=== PATIENT | female | born 2000 | race Caucasian/White ===

== ENCOUNTER 2022-10-13 17:05 | Emergency (ER) | payer OTHER, SELFPAY ==
--- NOTE | ~2022-10-13 | XR_ITS ---
EXAMINATION: XR CHEST CLINICAL INFORMATION: Chest pain COMPARISON: None TECHNIQUE: 2 views of the chest were obtained. 1740 hours FINDINGS: No significant abnormality is noted involving the heart, lungs, mediastinum, bony thorax or soft tissues. XR/XR chest 2V IMPRESSION: Unremarkable examination.
[2022-10-13 17:17] VITALS: BP 158/95; PULSE 97; RESP 18; TEMP 36.8; O2SAT 99; BMI 60.5
--- NOTE | 2022-10-13 17:18 | ECG_ITS ---
Test Reason : CHEST PAIN Blood Pressure : / mmHG Vent. Rate : 090 BPM Atrial Rate : 090 BPM P-R Int : 148 ms QRS Dur : 092 ms QT Int : 356 ms P-R-T Axes : 044 004 021 degrees QTc Int : 435 ms Normal sinus rhythm Minimal voltage criteria for LVH, may be normal variant ( R in aVL ) Borderline ECG No previous ECGs available Referred By: Melinda Louis Electronically Signed By:SREEKANTH BANKS
--- NOTE | 2022-10-13 17:19 | ED_ITS ---
HPI - Chest Pain General Chief Complaint: General Medical <PRACHI Bañuelos - Last Filed: 10/13/22 17:21> Stated Complaint: chest pain,high bp,headache <PRACHI Bañuelos - Last Filed: 10/13/22 17:21> Time Seen by Provider: 10/13/22 21:07 <PRACHI Bañuelos - Last Filed: 10/13/22 17:21> Source: patient <Jasmin Pearl MD - Last Filed: 10/13/22 21:31> Mode of arrival: ambulatory <Jasmin Pearl MD - Last Filed: 10/13/22 21:31> Limitations: no limitations <Jasmin Pearl MD - Last Filed: 10/13/22 21:31> History of Present Illness HPI narrative: Patient comes to the emergency room complaining of chest pain due to coughing and high blood pressure. Patient states that for about a month, she has been struggling with a combination of influenza/COVID. Patient states that she does not have chest pain on that she coughs, it is mostly musculoskeletal. Patient denies lightheadedness, dizziness or shortness of breath. Also, patient complaining of a migraine headache that started approximately 1 month ago. Patient takes Excedrin which usually helps, but lately it has been constant. Patient denies any visual changes, no neck pain or rigidity. Patient was diagnosed with preeclampsia in February 2022 when she delivered her baby, recently taken off nifedipine, since then, patient's blood pressure has been elevated between 140 and 160. <Jasmin Pealr MD - Last Filed: 10/13/22 21:31> Related Data Home Medications: Previous Rx's Medication Instructions Recorded nifedipine 30 mg tablet,extended 30 mg PO DAILY #30 tabs 10/13/22 release 24 hr sumatriptan succinate 50 mg tablet 50 mg PO Q2-4H PRN migraine 10/13/22 headache #10 tabs <PRACHI Bañuelos - Last Filed: 10/13/22 17:21> Allergies/Adverse Reactions: Allergies Allergy/AdvReac Type Severity Reaction Status Date / Time No Known Allergies Allergy Verified 10/13/22 17:16 <PRACHI Bañuelos - Last Filed: 10/13/22 17:21> Review of Systems Review of Systems: Constitutional : No Weight loss, No Fever, No Chills, No Night Sweats, No Fatigue, No Malaise ENT/Mouth : No Hearing loss, No Ear Pain, No Nasal Congestion, No Sinus Pain, No Hoarseness, No sore throat, No Rhinorrhea, No Swallowing Difficulty Eyes: No Eye Pain, No Swelling, No Redness, No Foreign Body, No Discharge, No Vision Changes Cardiovascular : Complaining of musculoskeletal chest pain bilaterally and in the back with coughing, No Chest Pain, No SOB, No Dyspnea on Exertion, No Orthopnea, No Edema, No Palpitations Respiratory : Complaining of chronic coughing for approximately 1 month, no wheezing, no shortness of breath Gastrointestinal : No Nausea, No Vomiting, No Diarrhea, No Constipation, No abdominal Pain, No Hematochezia, No Melena Genitourinary : no irregular bleeding, No Dysuria, No Urinary Frequency, No Hematuria, No Urinary Incontinence, No Urgency, No Flank Pain, No Urinary Flow Changes, No Hesitancy Musculoskeletal : No joint pain, No Myalgias, No Joint Swelling Skin : No Skin Lesions, No rash Neuro : No Weakness, No Numbness, No Paresthesias, No Loss of Consciousness, No Dizziness, complaining of intermittent migraines for 1 month Psych : No Anxiety/Panic, No Depression, No SI/HI/AH/VH, No Social Issues, Heme/Lymph: No Bruising, No Bleeding,No Lymphadenopathy Endocrine : No Polyuria, No Polydipsia, No Temperature Intolerance <Jasmin Pearl MD - Last Filed: 10/13/22 21:31> [facility] Past Medical History Medical History: Medical History (Updated 10/13/22 @ 21:29 by Jasmin Pearl MD) Migraines Preeclampsia <PRACHI Bañuelos - Last Filed: 10/13/22 17:21> Social History Social History: Social History Alcohol intake: current Alcohol intake frequency: a few times a month Smoked in Last 30 Days: No Use of substances other than those prescribed or required for medical reasons: No Advance Directives: No Advance Directives Information Provided: No Patient : No <PRACHI Bañuelos - Last Filed: 10/13/22 17:21> Physical Exam Vital Signs: Vital Signs: Last Vital Signs Temp 98.6 F 10/13/22 20:11 Pulse 90 10/13/22 20:11 Resp 16 10/13/22 20:11 BP 143/90 H 10/13/22 20:11 Pulse Ox 97 10/13/22 20:11 O2 Del Method 10/13/22 20:11 BMI result Body Mass Index 60.5 <PRACHI Bañuelos - Last Filed: 10/13/22 17:21> Vital Signs: Last Vital Signs Temp 98.6 F 10/13/22 20:11 Pulse 90 10/13/22 20:11 Resp 16 10/13/22 20:11 BP 143/90 H 10/13/22 20:11 Pulse Ox 97 10/13/22 20:11 O2 Del Method 10/13/22 20:11 BMI result Body Mass Index 60.5 <Jasmin Pearl MD - Last Filed: 10/13/22 21:31> Const: Other: Appearance: Alert. Oriented X3. No acute distress. Eyes: Pupils equal, round and reactive to light. ENT: Pharynx normal. Neck: Normal inspection. Neck supple. No lymph nodes noted. No crepitus CVS: Normal heart rate and rhythm. Pulses normal. Normal S1 and S2 Respiratory: No respiratory distress. Breath sounds normal. No Wheezing. No rales Abdomen: Soft and nontender. No rigidity. No distention. Skin: Skin warm and dry. Normal skin color. Normal skin turgor. Extremities: No lower extremity edema. No Lacerations. No Rash Neuro: Oriented X 3. No motor deficit. No sensory deficit. Moving all extremities. No slurred speech. CN 2 through 12 grossly intact Psych: calm, cooperative, normal affect <Jasmin Pearl MD - Last Filed: 10/13/22 21:31> Course Course Course Narrative: RME-17:16PM 22yoF with a past medical history of gestational hypertension and preeclampsia was also obese presenting to the ED with complaints of 1 month of a headache and she realized that she was positive for COVID. Although the headache continued despite her COVID symptoms improving and she checked her blood pressure and her blood pressure have been in the 130s over 100s over the past week. She reports that she also developed some chest pain that is radiating to her right breast that started today. She denies any dizziness, headaches, neck pain/stiffness, nausea/vomiting, jaw pain, paresthesias, dyspnea on exertion, orthopnea, palpitations, abdominal pain, rashes, recent falls or trauma, history of DVT or PE or any other symptoms complaints or concerns at this time. Plan: Labs, EKG, chest x-ray, COVID/RSV/flu swab. Patient is stable she will be sent back to the waiting room for further evaluation treatment to the main ER. <PRACHI Bañuelos - Last Filed: 10/13/22 17:21> RME-17:16PM 22yoF with a past medical history of gestational hypertension and preeclampsia was also obese presenting to the ED with complaints of 1 month of a headache and she realized that she was positive for COVID. Although the headache continued despite her COVID symptoms improving and she checked her blood pressure and her blood pressure have been in the 130s over 100s over the past week. She reports that she also developed some chest pain that is radiating to her right breast that started today. She denies any dizziness, headaches, neck pain/stiffness, nausea/vomiting, jaw pain, paresthesias, dyspnea on exertion, orthopnea, palpitations, abdominal pain, rashes, recent falls or trauma, history of DVT or PE or any other symptoms complaints or concerns at this time. Plan: Labs, EKG, chest x-ray, COVID/RSV/flu swab. Patient is stable she will be sent back to the waiting room for further evaluation treatment to the main ER. I discussed with the patient that her blood pressure has been high enough for several months now, got worse after discontinuing nifedipine. Discussed with the patient that we can restart her on nifedipine and she can follow up with her primary care physician. Also, patient was given the choice of holding off on blood pressure medications, keeping a log and following up with her OBGYN or PCP, test negative. Patient decided that for her it would be best to be restarted on nifedipine since her blood pressure was well controlled on it. For migraines, we will go ahead and give her 1 dose of sumatriptan in the emergency room, patient will have a prescription available at home. <Jasmin Pearl MD - Last Filed: 10/13/22 21:31> Medical Decision Making Medical Decision Making MDM Narrative: Wells criteria score for pulmonary embolism is 0, PE not suspected <Jasmin Pearl MD - Last Filed: 10/13/22 21:31> Differential Diagnosis Differential Diagnoses: The differential diagnosis associated with the presentation includes (COVID, influenza, migraine headache, hypertension) <Jasmin Pearl MD - Last Filed: 10/13/22 21:31> Lab Data MDM Lab Attestation statement: I reviewed the patient's lab results. <Jasmin Pearl MD - Last Filed: 10/13/22 21:31> Result Diagrams: : 10/13/22 18:54 10/13/22 18:54 <PRACHI Bañuelos - Last Filed: 10/13/22 17:21> Labs: Lab Results 10/13/22 10/13/22 10/13/22 Range/Units 18:54 18:54 18:54 WBC 8.3 (4.8-10.8) X10*3/uL RBC 4.98 (4.20-5.50) X10*6/uL Hgb 14.8 (12.0-16.0) g/dl Hct 42.4 (37.0-47.0) % MCV 85.1 (80.0-98.0) fL MCH 29.7 (27.0-33.0) pg MCHC 34.9 (31.0-35.0) g/dl RDW 13.2 (11.0-16.0) % Plt Count 360 (160-400) X10*3/uL MPV 10.3 (9.4-12.3) fL Immature Gran % (Auto) 0.2 (0.0-0.4) % Neut % (Auto) 54.7 (45-73) % Lymph % (Auto) 31.9 (20-40) % Gillespie % (Auto) 7.8 (2-11) % Eos % (Auto) 4.4 H (0-4) % Baso % (Auto) 1.0 (0-2) % Lymph # (Auto) 2.7 (1.2-4.9) X10*3/uL Gillespie # (Auto) 0.7 (0.1-1.2) X10*3/uL Eos # (Auto) 0.4 (0.0-0.4) X10*3/uL Baso # (Auto) 0.1 (0.0-0.2) X10*3/uL Abs Immat Gran (auto) 0.02 (0.00-0.03) X10*3/uL Absolute Neuts (auto) 4.6 (2.0-8.3) x10*3/uL Absolute Nucleated RBC 0.000 (0.0-0.012) X10*3/uL Nucleated RBC % (auto) 0.0 (0.0-0.2) /100WBC PT 11.4 (10.0-13.1) SEC INR 1.0 (0.9-1.1) Sodium 139 (135-145) mmol/L Potassium 4.0 (3.3-5.1) mmol/L Chloride 105 (96-108) mmol/L Carbon Dioxide 24 (22-29) mmol/L Anion Gap 14 (12-20) BUN 10 (9-16) mg/dL Creatinine 0.75 (0.5-1.4) mg/dL Estim Creat Clear Calc 147.9 Estimated GFR > 60 Random Glucose 86 (60-115) mg/dL Calcium 9.4 (8.4-10.2) mg/dL Magnesium 1.8 (1.6-2.6) mg/dL Total Bilirubin 0.5 (0.0-1.0) mg/dL AST 14 (5-31) U/L ALT 12 (0-31) U/L Alkaline Phosphatase 115 (39-117) U/L Troponin I High Sens (<3.5-17.0) ng/L Total Protein 7.2 (6.5-8.0) g/dL Albumin 3.8 (3.5-5.0) g/dL Beta HCG, Quant < 2 mIU/mL Influenza Type A (PCR) (Negative) Influenza Type B (PCR) (Negative) RSV RNA Qual (PCR) (Negative) SARS-CoV-2 RNA (RT-PCR) (Negative) 10/13/22 10/13/22 Range/Units 18:54 18:54 WBC (4.8-10.8) X10*3/uL RBC (4.20-5.50) X10*6/uL Hgb (12.0-16.0) g/dl Hct (37.0-47.0) % MCV (80.0-98.0) fL MCH (27.0-33.0) pg MCHC (31.0-35.0) g/dl RDW (11.0-16.0) % Plt Count (160-400) X10*3/uL MPV (9.4-12.3) fL Immature Gran % (Auto) (0.0-0.4) % Neut % (Auto) (45-73) % Lymph % (Auto) (20-40) % Gillespie % (Auto) (2-11) % Eos % (Auto) (0-4) % Baso % (Auto) (0-2) % Lymph # (Auto) (1.2-4.9) X10*3/uL Gillespie # (Auto) (0.1-1.2) X10*3/uL Eos # (Auto) (0.0-0.4) X10*3/uL Baso # (Auto) (0.0-0.2) X10*3/uL Abs Immat Gran (auto) (0.00-0.03) X10*3/uL Absolute Neuts (auto) (2.0-8.3) x10*3/uL Absolute Nucleated RBC (0.0-0.012) X10*3/uL Nucleated RBC % (auto) (0.0-0.2) /100WBC PT (10.0-13.1) SEC INR (0.9-1.1) Sodium (135-145) mmol/L Potassium (3.3-5.1) mmol/L Chloride (96-108) mmol/L Carbon Dioxide (22-29) mmol/L Anion Gap (12-20) BUN (9-16) mg/dL Creatinine (0.5-1.4) mg/dL Estim Creat Clear Calc Estimated GFR Random Glucose (60-115) mg/dL Calcium (8.4-10.2) mg/dL Magnesium (1.6-2.6) mg/dL Total Bilirubin (0.0-1.0) mg/dL AST (5-31) U/L ALT (0-31) U/L Alkaline Phosphatase (39-117) U/L Troponin I High Sens < 3.5 (<3.5-17.0) ng/L Total Protein (6.5-8.0) g/dL Albumin (3.5-5.0) g/dL Beta HCG, Quant mIU/mL Influenza Type A (PCR) NEGATIVE (Negative) Influenza Type B (PCR) NEGATIVE (Negative) RSV RNA Qual (PCR) NEGATIVE (Negative) SARS-CoV-2 RNA (RT-PCR) NEGATIVE (Negative) <PRACHI Bañuelos - Last Filed: 10/13/22 17:21> Lab Results 10/13/22 10/13/22 10/13/22 Range/Units 18:54 18:54 18:54 WBC 8.3 (4.8-10.8) X10*3/uL RBC 4.98 (4.20-5.50) X10*6/uL Hgb 14.8 (12.0-16.0) g/dl Hct 42.4 (37.0-47.0) % MCV 85.1 (80.0-98.0) fL MCH 29.7 (27.0-33.0) pg MCHC 34.9 (31.0-35.0) g/dl RDW 13.2 (11.0-16.0) % Plt Count 360 (160-400) X10*3/uL MPV 10.3 (9.4-12.3) fL Immature Gran % (Auto) 0.2 (0.0-0.4) % Neut % (Auto) 54.7 (45-73) % Lymph % (Auto) 31.9 (20-40) % Gillespie % (Auto) 7.8 (2-11) % Eos % (Auto) 4.4 H (0-4) % Baso % (Auto) 1.0 (0-2) % Lymph # (Auto) 2.7 (1.2-4.9) X10*3/uL Gillespie # (Auto) 0.7 (0.1-1.2) X10*3/uL Eos # (Auto) 0.4 (0.0-0.4) X10*3/uL Baso # (Auto) 0.1 (0.0-0.2) X10*3/uL Abs Immat Gran (auto) 0.02 (0.00-0.03) X10*3/uL Absolute Neuts (auto) 4.6 (2.0-8.3) x10*3/uL Absolute Nucleated RBC 0.000 (0.0-0.012) X10*3/uL Nucleated RBC % (auto) 0.0 (0.0-0.2) /100WBC PT 11.4 (10.0-13.1) SEC INR 1.0 (0.9-1.1) Sodium 139 (135-145) mmol/L Potassium 4.0 (3.3-5.1) mmol/L Chloride 105 (96-108) mmol/L Carbon Dioxide 24 (22-29) mmol/L Anion Gap 14 (12-20) BUN 10 (9-16) mg/dL Creatinine 0.75 (0.5-1.4) mg/dL Estim Creat Clear Calc 147.9 Estimated GFR > 60 Random Glucose 86 (60-115) mg/dL Calcium 9.4 (8.4-10.2) mg/dL Magnesium 1.8 (1.6-2.6) mg/dL Total Bilirubin 0.5 (0.0-1.0) mg/dL AST 14 (5-31) U/L ALT 12 (0-31) U/L Alkaline Phosphatase 115 (39-117) U/L Troponin I High Sens (<3.5-17.0) ng/L Total Protein 7.2 (6.5-8.0) g/dL Albumin 3.8 (3.5-5.0) g/dL Beta HCG, Quant < 2 mIU/mL Influenza Type A (PCR) (Negative) Influenza Type B (PCR) (Negative) RSV RNA Qual (PCR) (Negative) SARS-CoV-2 RNA (RT-PCR) (Negative) 10/13/22 10/13/22 Range/Units 18:54 18:54 WBC (4.8-10.8) X10*3/uL RBC (4.20-5.50) X10*6/uL Hgb (12.0-16.0) g/dl Hct (37.0-47.0) % MCV (80.0-98.0) fL MCH (27.0-33.0) pg MCHC (31.0-35.0) g/dl RDW (11.0-16.0) % Plt Count (160-400) X10*3/uL MPV (9.4-12.3) fL Immature Gran % (Auto) (0.0-0.4) % Neut % (Auto) (45-73) % Lymph % (Auto) (20-40) % Gillespie % (Auto) (2-11) % Eos % (Auto) (0-4) % Baso % (Auto) (0-2) % Lymph # (Auto) (1.2-4.9) X10*3/uL Gillespie # (Auto) (0.1-1.2) X10*3/uL Eos # (Auto) (0.0-0.4) X10*3/uL Baso # (Auto) (0.0-0.2) X10*3/uL Abs Immat Gran (auto) (0.00-0.03) X10*3/uL Absolute Neuts (auto) (2.0-8.3) x10*3/uL Absolute Nucleated RBC (0.0-0.012) X10*3/uL Nucleated RBC % (auto) (0.0-0.2) /100WBC PT (10.0-13.1) SEC INR (0.9-1.1) Sodium (135-145) mmol/L Potassium (3.3-5.1) mmol/L Chloride (96-108) mmol/L Carbon Dioxide (22-29) mmol/L Anion Gap (12-20) BUN (9-16) mg/dL Creatinine (0.5-1.4) mg/dL Estim Creat Clear Calc Estimated GFR Random Glucose (60-115) mg/dL Calcium (8.4-10.2) mg/dL Magnesium (1.6-2.6) mg/dL Total Bilirubin (0.0-1.0) mg/dL AST (5-31) U/L ALT (0-31) U/L Alkaline Phosphatase (39-117) U/L Troponin I High Sens < 3.5 (<3.5-17.0) ng/L Total Protein (6.5-8.0) g/dL Albumin (3.5-5.0) g/dL Beta HCG, Quant mIU/mL Influenza Type A (PCR) NEGATIVE (Negative) Influenza Type B (PCR) NEGATIVE (Negative) RSV RNA Qual (PCR) NEGATIVE (Negative) SARS-CoV-2 RNA (RT-PCR) NEGATIVE (Negative) <Jasmin Pearl MD - Last Filed: 10/13/22 21:31> Independent Interpretation I performed an independent interpretation of an: EKG (My interpretation: Normal sinus rhythm, heart rate 90, no ST segment depression or elevation, nonspecific T-wave inversions, QTC 435) and Plain X-Ray (Interpretation, no acute findings.) <Jasmin Pearl MD - Last Filed: 10/13/22 21:31> Radiology Impression Discussion of test interpretation with radiology: I have reviewed the radiologist's reading. (FINDINGS: No significant abnormality is noted involving the heart, lungs, mediastinum, bony thorax or soft tissues.) <Jasmin Pearl MD - Last Filed: 10/13/22 21:31> Discharge Plan Discharge Clinical Impression: Chronic bronchitis, Migraine, Hypertension <PRACHI Bañuelos - Last Filed: 10/13/22 17:21> Patient Disposition: Home, Self-Care <PRACHI Bañuelos - Last Filed: 10/13/22 17:21> Instructions: Migraine Headache (ED), Hypertension (ED) <PRACHI Bañuelos - Last Filed: 10/13/22 17:21> Additional Instructions: Please follow-up with your primary care physician tomorrow. If you have any worsening or new symptoms, please return to the emergency room or call 911 <PRACHI Bañuelos - Last Filed: 10/13/22 17:21> Prescriptions: New sumatriptan succinate 50 mg tablet 50 mg PO Q2-4H PRN (Reason: migraine headache) Qty: 10 0RF Rx Instructions: do not exceed 4 doses per 24 hrs nifedipine 30 mg tablet extended release 24hr 30 mg PO DAILY Qty: 30 0RF <PRACHI Bañuelos - Last Filed: 10/13/22 17:21>
[2022-10-13 19:05] LABS: MANUAL DIFF FLAG NO
[2022-10-13 19:07] LABS: Basophils Absolute Auto 0.1 X10*3/uL (0.0-0.2); Eosinophils Absolute Auto 0.4 X10*3/uL (0.0-0.4); Eosinophils Percent Auto 4.4 % (0-4); Hematocrit 42.4 % (37.0-47.0); Hemoglobin 14.8 g/dl (12.0-16.0); Imm Gran Abs Auto 0.02 X10*3/uL (0.00-0.03); Imm Gran Pct Auto 0.2 % (0.0-0.4); Lymphocytes Absolute Auto 2.7 X10*3/uL (1.2-4.9); Lymphocytes Percent Auto 31.9 % (20-40); Mean Corpuscular HGB Conc 34.9 g/dl (31.0-35.0); Mean Corpuscular Hemoglobin 29.7 pg (27.0-33.0); Mean Corpuscular Volume 85.1 fL (80.0-98.0); Mean Platelet Volume 10.3 fL (9.4-12.3); Monocytes Absolute Auto 0.7 X10*3/uL (0.1-1.2); Monocytes Percent Auto 7.8 % (2-11); Neutrophils Absolute Auto 4.6 x10*3/uL (2.0-8.3); Neutrophils Percent Auto 54.7 % (45-73); Platelet Count 360 X10*3/uL (160-400); Red Blood Count 4.98 X10*6/uL (4.20-5.50); Red Cell Distribution Width 13.2 % (11.0-16.0); White Blood Count 8.3 X10*3/uL (4.8-10.8)
[2022-10-13 19:12] LABS: Prothrombin Time 11.4 SEC (10.0-13.1)
[2022-10-13 19:38] LABS: Alanine Aminotransferase 12 U/L (0-31); Albumin Level 3.8 g/dL (3.5-5.0); Alkaline Phosphatase 115 U/L (39-117); Anion Gap 14 (12-20); Aspartate Amino Transferase 14 U/L (5-31); Bilirubin Total 0.5 mg/dL (0.0-1.0); Blood Urea Nitrogen 10 mg/dL (9-16); Calcium 9.4 mg/dL (8.4-10.2); Carbon Dioxide 24 mmol/L (22-29); Chloride 105 mmol/L (96-108); Creatinine Clr Calc Pharmacy 147.9; Estimated Glomerular Filt Rate > 60; Glucose Random 86 mg/dL (60-115); HCG Quantitative < 2 mIU/mL; Magnesium 1.8 mg/dL (1.6-2.6); Sodium 139 mmol/L (135-145); Total Protein 7.2 g/dL (6.5-8.0); Troponin-I High Sensitivity < 3.5 ng/L (<3.5-17.0)
[2022-10-13 19:50] LABS: Influenza A PCR NEGATIVE (Negative); Influenza B PCR NEGATIVE (Negative); Resp Syncy Virus RNA Qual PCR NEGATIVE (Negative); SARS COV2 PCR INHOUSE NEGATIVE (Negative)
[2022-10-13 20:11] VITALS: BP 143/90; PULSE 90; RESP 16; TEMP 37; O2SAT 97
--- NOTE | 2022-10-13 20:20 | PC.NURSE ---
Pt's V/S are stable, pt reports experiencing pain on her frontal head and sternal chest pain. Pt reports having hx of migraines and takes medication but it does not seems to help her with pain. Pt's is at bedside. Pt's neuro assessment was normal and HR was slightly elevated (112). will continue to monitor.
--- OUTSIDE RECORDS SUMMARY | 2022-10-13 20:51 | XMS_ITS | Continuity of Care Document ---
:2000 Author Organization [facility] Address [address] [place] [address]- Care Team Providers Name Role Phone Not on Staff, PCP Primary Care Physician Unavailable Encounter [facility] Date(s): 08/03/21 - 09/02/21 [facility] [address] [place], [place] [id number] Allergies, Adverse Reactions, Alerts Substance Reaction Severity Status NKA Active Medications ondansetron 4 mg oral tablet, disintegrating 1 tablet = 4 mg, By Mouth, Every 8 hours, PRN Nausea & Vomiting, allow tablet to dissolve on tongue, # 10 tablet, 0 Refills, Maintenance, 06/16/20 4:17:00 EDT, Tablet, [id number], 111.7, kg, 12/23/18 20:46:00 EST, Dry Weight Start Date: 06/16/20 Status: Ordered Problem List Condition Effective Dates Status Health Status Informant ADHD - Attention deficit disorder with Active hyperactivity(Confirmed) Childhood obesity(Confirmed) Active Chronic migraine without aura without Active status migrainosus, not intractable(Confirmed) Social History Social History Type Response Smoking Status Never smoker entered on: 11/11/15 Sex
--- OUTSIDE RECORDS SUMMARY | 2022-10-13 20:51 | XMS_ITS | Continuity of Care Document ---
:2000 Author Organization [facility] Address [address] [place] [address]- Care Team Providers Name Role Phone Not on Staff, PCP Primary Care Physician Unavailable Encounter [facility] Date(s): 06/15/20 - 06/16/[address] [address]- [facility] Discharge Disposition: A-D/C Home Attending Physician: Krystal Gruber MD Admitting Physician: Krystal Gruber MD Referring Physician: Not on Staff, Referring MD Allergies, Adverse Reactions, Alerts Substance Reaction Severity Status NKA Active Medications cephalexin monohydrate 500 mg oral capsule 1 capsule = 500 mg, By Mouth, 2 times a day, for 10 days, Take antibiotic until complete, # 20 capsule, 0 Refills, Acute 06/26/20 4:17:00 EDT, 06/16/20 4:17:00 EDT, Capsule, [id number], 111.7, kg, 12/23/18 20:46:00 EST, Dry Weight Start Date: 06/16/20 Stop Date: 06/26/20 Status: Orderedondansetron 4 mg oral tablet, disintegrating 1 tablet [...] aura without Active status migrainosus, not intractable(Confirmed) Vital Signs Most recent to oldest 1 2 3 [Reference Range]: Oxygen Saturation [94-100 %] 98 % 99 % 100 % (06/16/20 5:17 AM) (06/16/20 3:38 AM) (06/15/20 9:5 2 PM) Pulse Rate [55-90 bpm] 104 bpm 93 bpm 117 bpm *H* *H* *H* (06/16/20 5:17 AM) (06/16/20 3:38 AM) (06/15/20 9:5 2 PM) Blood Pressure [90-138/55-84 mm 111/79 mm Hg 112/80 mm Hg 151/103 mm Hg Hg] (06/16/20 5:17 AM) (06/16/20 3:38 AM) *H* (06/15/20 9:52 PM ) Respiratory Rate [16-30 br/min] 20 br/min 20 br/min 20 br/min (06/16/20 5:17 AM) (06/16/20 3:38 AM) (06/15/20 9:5 2 PM) Temperature [96.8-100.4 DegF] 98.2 DegF 97.6 DegF 97 .5 DegF (06/16/20 5:17 AM) (06/16/20 3:38 AM) (06/15/20 9:5 2 PM) Mode of Delivery (Oxygen) Room air Room air Room a ir (06/16/20 5:17 AM) (06/16/20 3:38 AM) (06/15/20 9:5 2 PM) Blood pressure sites Arm, left Arm, left Arm, right (06/16/20:17 AM) (06/16/20 3:38 AM) (06/15/20 9:5 2 PM) Temperature Route Oral Oral Oral (06/16/20 5:17 AM) (06/16/20 3:38 AM) (06/15/20 9:5 2 PM) Social History Social History Type Response Smoking Status Never smoker entered on: 11/11/15 Sex
--- OUTSIDE RECORDS SUMMARY | 2022-10-13 20:51 | XMS_ITS | Continuity of Care Document ---
:2000 Author Organization [facility] Address [address] [place] [address]- Care Team Providers Name Role Phone Not on Staff, PCP Primary Care Physician Unavailable Encounter [facility] Date(s): 08/22/21 - 09/21/21 [facility] [address] [place] [id number] Allergies, Adverse Reactions, Alerts Substance Reaction [...]
--- OUTSIDE RECORDS SUMMARY | 2022-10-13 20:51 | XMS_ITS | Continuity of Care Document ---
:2000 Author Organization [facility] Address [address] [place] [id number]- Care Team Providers Name Role Phone Jose SONG, Gwendolyn Matute Primary Care Physician Encounter [facility] Date(s): 02/27/22 - 03/04/[address] [id number] Discharge Disposition: A-D/C Home Attending Physician: Radha Longo MD Admitting Physician: Radha Longo MD Referring Physician: Radha Longo MD Allergies, Adverse Reactions, Alerts No Known Allergies Medications Colace sodium 100 mg oral capsule 100 mg, 1, capsule, By Mouth, 2 times a day, PRN, # 30 capsule, Refills 0, Tot. Refills 0, Maintenance, for constipation, 03/04/22 8:14:00 EDT, Route to Pharmacy Electronically, [facility]/pharmacy #[id number], Partial fill upon patient request if the prescription... Start Date: 03/04/22 Status: Orderedibuprofen 800 mg oral tablet 800 mg, 1, tablet, By Mouth, Every 8 hours, # 40 tablet, Refills 0, Tot. Refills 0, Acute 03/18/22 8:15:00 EDT, 03/04/22 8:15:00 EDT, Route to Pharmacy Electronically, [facility]/pharmacy #[id number], Partial fill upon patient request if the prescription is for a... Start Date: 03/04/22 Stop Date: 03/18/22 Status: OrderedoxyCODONE 5 mg oral tablet 5 mg, 1, tablet, By Mouth, Every 6 hours, PRN, for 3 days, Patient may fill less than prescribed, # 5 tablet, Refills 0, Tot. Refills 0, Acute 03/07/22 8:14:00 EDT, for pain, 03/04/22 8:14:00 EDT, Route to Pharmacy Electronically, [facility]/pharmacy #[id number],... Start Date: 03/04/22 Stop Date: 03/07/22 Status: OrderedPrenatal Multivitamins By Mouth, Daily, 0 Refills, Maintenance, 12/07/21 15:17:00 EST, Partial fill upon patient request ifthe prescription is for a schedule II opioid drug. Start Date: 12/07/21 Status: Orderedtriamcinolone 0.1% topical cream 1 application, Topically, 2 times a day, # 60 Gm, 0 Refills, Maintenance, 02/27/22 21:10:00 EDT, Cream, Partial fill upon patient request if the prescription is for a schedule II opioid drug. Start Date: 02/27/22 Status: OrderedTylenol 325 mg oral tablet 650 mg, 2, tablet, By Mouth, Every 4 hours, PRN, # 50 tablet, Refills 0, Tot. Refills 0, Acute 03/18/22 8:18:00 EDT, for pain, 03/04/22 8:18:00 EDT, Route to Pharmacy Electronically, [facility]/pharmacy #[id number], Partial fill upon patient request if the prescri... Start Date: 03/04/22 Stop Date: 03/18/22 Status: Ordered Problem List Condition Effective Dates Status Health Status Informant ADHD - Attention deficit disorder with Active hyperactivity(Confirmed) Childhood obesity(Confirmed) Active Depression(Confirmed) Active Chronic migraine without aura without Active status migrainosus, not intractable(Confirmed) Anxiety with depression(Confirmed) Active Severe obesity(Confirmed) Active Procedures Procedure Date Related Diagnosis Body Site Status delivery only; 03/01/22 Comp leted Vital Signs Most recent to oldest 1 2 3 [Reference Range]: Height 145 cm 145 cm 145 cm (03/04/22 12:45 PM) (03/04/22 8:48 AM) (03/04/22 4:05 AM) Weight 146 kg (02/27/22 8:48 PM) Oxygen Saturation [94-100 %] 96 % 96 % 95 % (03/04/22 12:45 PM) (03/04/22 12:00 PM) (03/04/22 8:48 AM) Pulse Rate [55-90 bpm] 96 bpm 96 bpm 89 bpm *H* *H* (03/04/22 8:48 AM) (03/04/22 12:48 PM) (03/04/22 12:45 PM) Body Mass Index [18.5-24.99] 69.44 *>HHI* (02/27/22 8:48 PM) Blood Pressure [90-138/55-84 mm 132/79 mm Hg 132/79 mm Hg 126/72 mm Hg Hg] (03/04/22 12:48 PM) (03/04/22 12:45 PM) (03/04/22 8:48 AM) Respiratory Rate [16-30 br/min] 20 br/min 20 br/min 18 br/min (03/04/22 12:48 PM) (03/04/22 12:45 PM) (03/04/22 8:48 AM) Temperature [96.8-100.4 DegF] 97.8 DegF 97.8 DegF 97 .6 DegF (03/04/22 12:48 PM) (03/04/22 12:45 PM) (03/04/22 8:48 AM) Mode of Delivery (Oxygen) Room air Room air Room a ir (03/04/22 4:05 AM) (03/04/22 12:15 AM) (03/03/22 8:06 PM) Blood pressure sites Arm, left Arm, left Arm, right (03/04/22 12:48 PM) (03/04/22 4:05 AM) (03/04/22 12:15 AM) Temperature Route Oral Oral Oral (03/04/22 12:48 PM) (03/04/22 12:45 PM) (03/04/22 8:48 AM) Dry Weight 146 kg (02/27/22 8:48 PM) Social History Social History Type Response Smoking Status Never smoker entered on: 11/11/15 Sex
--- OUTSIDE RECORDS SUMMARY | 2022-10-13 20:51 | XMS_ITS | Continuity of Care Document ---
:2000 Author Organization [facility] Address [address] [place] [phone]- Care Team Providers Name Role Phone Not on Staff, PCP Primary Care Physician Unavailable Encounter [facility] Date(s): 12/07/21 - 12/07/[address] [id number] Discharge Disposition: A-D/C Home Attending Physician: Radha Longo MD Admitting Physician: Radha Longo MD Referring Physician: Radha Longo MD Allergies, Adverse Reactions, Alerts No Known Allergies Medications ondansetron 4 mg oral tablet, disintegrating 1 tablet = 4 mg, By Mouth, Every 8 hours, PRN Nausea & Vomiting, allow tablet to dissolve on tongue, # 10 tablet, 0 Refills, Maintenance, 06/16/20 4:17:00 EDT, Tablet, [facility]/pharmacy #[id number], 111.7, kg, 12/23/18 20:46:00 EST, Dry Weight Start Date: 06/16/20 Status: OrderedPrenatal Multivitamins By Mouth, Daily, 0 Refills, Maintenance, 12/07/21 15:17:00 EST, Partial fill upon patient request ifthe prescription is for a schedule II opioid drug. Start Date: 12/07/21 Status: Ordered Problem List Condition Effective Dates Status Health Status Informant ADHD - Attention deficit disorder with Active hyperactivity(Confirmed) Childhood obesity(Confirmed) Active Depression(Confirmed) Active Chronic migraine without aura without Active status migrainosus, not intractable(Confirmed) Anxiety with depression(Confirmed) Active Procedures Procedure Date Related Diagnosis Body Site Status [place] tooth Completed Vital Signs Most recent to oldest [Reference 1 2 3 Range]: Weight 143.3 kg (12/07/21 3:11 PM) Oxygen Saturation [94-100 %] 97 % 97 % 97 % (12/07/21 4:03 PM) (12/07/21 3:48 PM) (12/07/21 3:35 P M) Blood Pressure [90-138/55-84 mm 93/62 mm Hg 114/67 mm Hg 115/65 mm Hg Hg] (12/07/21 6:03 PM) (12/07/21 5:48 PM) (12/07/21 5:33 P M) Respiratory Rate [16-30 br/min] 18 br/min (12/07/21 3:16 PM) Temperature [96.8-100.4 DegF] 98.7 DegF (12/07/21 3:16 PM) Blood pressure sites Arm, right Arm, right Arm, right (12/07/21 3:48 PM) (12/07/21 3:35 PM) (12/07/21 3:16 P M) Temperature Route Oral (12/07/21 3:16 PM) Dry Weight 143.3 kg (12/07/21 3:11 PM) Weight Obtained Via Standing scale (12/07/21 3:11 PM) Dry Weight Obtained Via Standing scale (12/07/21 3:11 PM) Social History Social History Type Response Smoking Status Never smoker entered on: 11/11/15 Sex
[2022-10-13] MEDS: NIFEdipine ER 30 MG TAB.ER.24 PO (22:15)
[2022-10-13] MEDS: SUMAtriptan succinate 100 MG TABLET PO (22:15)
== END 2022-10-13 22:18 | disposition home or self-care (01) ==
PROVIDERS: Physician Assistant Medical; Emergency Provider Emergency Medicine
DX: J42 Unspecified chronic bronchitis (principal); G43.909 Migraine, unspecified, not intractable, without status migrainosus; I10 Essential (primary) hypertension; Z20.822 Contact with and (suspected) exposure to COVID-19; E66.9 Obesity, unspecified; Z68.44 Body mass index [BMI] 60.0-69.9, adult
CPT/HCPCS: 0241U; 36415; 71046; 80053; 83735; 84484; 84702; 85025; 85610; 93005; 99283; 99285

== ENCOUNTER 2024-04-29 10:28 | Emergency (ER) | payer OTHER, SELFPAY ==
[2024-04-29 10:37] VITALS: BP 138/89; PULSE 82; RESP 16; TEMP 36.8; O2SAT 98; BMI 66.0
--- NOTE | 2024-04-29 11:18 | ED_ITS ---
HPI - Female Genitourinary General Chief complaint: Urogenital-Female Stated complaint: Back pain Time Seen by Provider: 04/29/24 10:43 Source: patient and RN notes reviewed Mode of arrival: ambulatory Limitations: no limitations History of Present Illness ED Provider: iLnda Avalos PA-C [facility] Narrative: This is a 23-year-old female, who is 1 month with gestational hypertension, who presents emergency department with complaints of atraumatic right-sided low back pain. Patient states that over the last 2-3 days she has noticed increased pain to her right low back without any injury. She also states that she has had some dysuria, and urinary frequency and urgency. She states that she has had no fevers or chills. No abdominal pain, nausea, vomiting or diarrhea. She does report that she has vaginal bleeding, denies passing blood clots or severe bleeding. No lightheadedness or dizziness. No other complaints or concerns at this time. MD elicited complaint: UTI Vaginal discharge: none Vaginal bleeding: scant Urinary symptoms: Dysuria, Urgency and Frequency Exacerbating factors: urination Relieving factors: none Treatment prior to arrival: none Related Data Previous Rx's ?Medication ?Instructions ?Recorded nifedipine 30 mg tablet,extended 30 mg PO DAILY #30 tabs 10/13/22 release 24 hr sumatriptan succinate 50 mg tablet 50 mg PO Q2-4H PRN migraine 10/13/22 headache #10 tabs cefuroxime axetil 250 mg tablet 250 mg PO BID 7 days #14 tabs 04/29/24 Allergies Allergy/AdvReac Type Severity Reaction Status Date / Time No Known Allergies Allergy Verified 04/29/24 10:38 Review of Systems Review of Systems: Yes all other systems are reviewed and are negative Constitutional: Constitutional: Reports as per [facility] Past Medical History Medical History (Updated 04/29/24 @ 13:32 by PRACHI King) Preeclampsia Migraines Social History Social History Alcohol intake: current Alcohol intake frequency: a few times a month Advance Directives: No Advance Directives Information Provided: No Physical Exam Vital Signs: Vital Signs: Last Vital Signs Temp 98.2 F 04/29/24 13:00 Pulse 88 04/29/24 13:00 Resp 20 04/29/24 13:00 BP 136/88 04/29/24 13:00 Pulse Ox 100 04/29/24 13:00 O2 Del Method Room Air 04/29/24 13:00 BMI result Body Mass Index 66.0 Const: General: cooperative, comfortable and no acute distress Orientation/consciousness: patient oriented x3 Limitations: no limitations HEENT: Head: Yes normal to inspection, Yes normocephalic and Yes atraumatic Ears: hearing grossly normal bilaterally General nose exam: Normal external nose present Face and sinus: Yes normal facial exam Mouth: Normal oral and palatal mucosa present, oropharynx normal and moist mucous membranes Throat: Yes posterior oropharynx normal Eyes: General: appearance normal, both eyes and all related structures Eyelids: Yes eyelids normal Conjunctivae: conjunctivae normal Sclerae: sclerae normal Pupils: Equal, round and reactive pupils present EOM: EOMs intact bilaterally Neck: Neck: Yes normal visual inspection, Yes full ROM and Yes no lymphadenopathy Lymphatic: no lymphadenopathy noted Chest: Chest palpation & inspection: normal inspection of the chest Resp: Effort & Inspection: normal respiratory effort and able to speak in complete sentences Auscultation: clear to auscultation bilaterally, no crackles, no rales, no rhonchi and no wheezes Cardio: Rate: regular rate Rhythm: regular rhythm Heart sounds: S1 normal heart sound present and S2 normal heart sound present GI: Inspection: Yes normal to inspection : Other: No CVA tenderness Skin: General skin exam: no rashes or lesions noted Trauma: no lacerations or abrasions Wounds: no wounds Neuro: General: patient oriented x3 and moves all extremities Cranial nerves: Yes Equal, round and reactive pupils present Extrem: General: Yes normal to inspection Right upper extremity: normal to inspection Left upper extremity: normal to inspection Right lower extremity: normal to inspection Left lower extremity: normal to inspection Course Reevaluation(s) Reevaluation #1: Urine returns, does have protein, large blood, small leuks, and wbc's. This appears to be infected however it is also contaminated. Given that she was symptomatic with dysuria, will treat as a urinary tract infection. Discussed this with patient and agrees with this plan. Patient stable for discharge Time: 13:25 Medical Decision Making Medical Decision Making MDM Narrative: This is a 23-year-old female who presents emergency department with complaints of dysuria, urinary frequency and urgency as well as back pain. Back pain is atraumatic. On arrival, vital signs within normal limits. Back is nontender. She has no CVA tenderness. He wants to be tested for strep throat, as her child just tested positive. Differential diagnoses include lumbar strain, sprain, contusion, sciatica, cystitis, pyelonephritis. She has no red flag back symptoms. Differential Diagnosis Differential Diagnoses: The differential diagnosis associated with the presentation includes See above Lab Data MDM Lab Attestation statement: I reviewed the patient's lab results. Urine with Labs: Lab Results 04/29/24 Range/Units 12:02 Urine Color Yellow Urine Appearance Clear Urine pH 5.5 (5.0-9.0) Ur Specific [place] 1.020 (1.005-1.025) Urine Protein 30 (1+) H (Neg-Trace) mg/dL Urine Glucose (UA) Negative (Negative) mg/dL Urine Ketones Negative (Negative) mg/dL Urine Blood Large (3+) H (Negative) Urine Nitrite Negative (Negative) Ur Leukocyte Esterase Small (1+) H (Negative) Urine RBC >20 H (0-2) /HPF Urine WBC 11-20 H (0-5) /HPF Ur Squamous Epith Cells 3-5 (0-2) /HPF Urine Bacteria Trace (None Seen) Hyaline Casts 0-2 (0-2) /LPF Influenza Type A (PCR) NEGATIVE (Negative) Influenza Type B (PCR) NEGATIVE (Negative) RSV RNA Qual (PCR) NEGATIVE (Negative) SARS-CoV-2 RNA (RT-PCR) NEGATIVE (Negative) S. pyogenes GrpA ANA Negative (Negative) Radiology Impression Discussion of test interpretation with radiology: I have reviewed the radiologist's reading. External Record Review External record reviewed: Inpatient record, Office record, Outpatient record, Prior outpatient labs, Prior outpatient radiology, Primary care record and Outside ED record Discharge Plan Discharge Clinical Impression: Urinary tract infection Patient Disposition: Home, Self-Care Instructions: Urinary Tract Infection in Women (ED) Additional Instructions: You were seen in the ER today. Your urine appears to be infected. Take prescribed antibiotic as directed. Drink plenty of fluids get plenty of rest. Follow-up with your OBGYN regarding antibiotic and breast-feeding. We are sending your urine out for further testing, we will call you if we need to switch the antibiotic. If any new or worsening symptoms occur including but not limited to worsening pain, fevers, chills, severe abdominal pain, please return for re-evaluation. Prescriptions: New cefuroxime axetil 250 mg tablet 250 mg PO BID 7 Days Qty: 14 0RF No Action sumatriptan succinate 50 mg tablet 50 mg PO Q2-4H PRN (Reason: migraine headache) Qty: 10 0RF Rx Instructions: do not exceed 4 doses per 24 hrs nifedipine 30 mg tablet extended release 24hr 30 mg PO DAILY Qty: 30 0RF Print Language: Senegalese
[2024-04-29 12:12] LABS: Appearance Urine Clear; Color Urine Yellow; Glucose Urine UA Negative (Negative); Leukocyte Esterase Urine Small (1+) (Negative); Nitrite Urine Negative (Negative); PH 5.5 (5.0-9.0); UMIC TRIGGER UACC YES; Urine Blood Large (3+) (Negative); Urine Ketones Negative (Negative); Urine Protein 30 (1+) mg/dL (Neg-Trace)
[2024-04-29 12:16] LABS: Bacteria Urine Trace (None Seen); Hyaline Casts Urine 0-2 /LPF (0-2); RBC Urine >20 /HPF (0-2); UACC Culture Trigger YES
[2024-04-29 12:19] LABS: IDNOW Serial# 58CA691E
[2024-04-29 12:20] LABS: Strep A Nucleic Acid Negative (Negative)
[2024-04-29 12:55] LABS: Influenza A PCR NEGATIVE (Negative); Influenza B PCR NEGATIVE (Negative); Resp Syncy Virus RNA Qual PCR NEGATIVE (Negative); SARS COV2 PCR INHOUSE NEGATIVE (Negative)
[2024-04-29 13:00] VITALS: BP 136/88; PULSE 88; RESP 20; TEMP 36.8; O2SAT 100
[2024-04-29 14:12] VITALS: BP 136/88; PULSE 88; RESP 20; TEMP 36.8; O2SAT 100
== END 2024-04-29 14:13 | disposition home or self-care (01) ==
PROVIDERS: Physician Assistant Medical; Emergency Provider Emergency Medicine
DX: N39.0 Urinary tract infection, site not specified (principal); M54.50 Low back pain, unspecified; R30.0 Dysuria; R35.0 Frequency of micturition; Z03.818 Encounter for observation for suspected exposure to other biological agents ruled out
CPT/HCPCS: 0241U; 81001; 87086; 87651; 99283